=== PATIENT | male | born 1955 | race Caucasian/White ===

== ENCOUNTER 2020-01-26 16:08 | Inpatient (IN) ==
[2020-01-26] MEDS ORDERED: DilTIAZem 50 MG in 0.9 % Sodium Chloride 40 ML IVC SCH (17:00)
[2020-01-26] MEDS ORDERED: Naloxone 0.4 MG/ML INJ IVP PRN (17:59)
[2020-01-26] MEDS ORDERED: *HR* Heparin 5,000 UNIT/ML VIAL IVP ONE (18:46)
[2020-01-26] MEDS ORDERED: *HR* Heparin 5,000 UNIT/ML VIAL IVP PRN ×2 (18:46)
[2020-01-26 18:47] LABS: Basophils % 0.3 %; Eosinophils # 0.1 K/mcL (0.0-0.6); Eosinophils % 1.2 %; Hematocrit 38.8 % (37.5-50.1); Hemoglobin 11.5 g/dL (12.9-16.9); Immature Granulocytes % 0.4 % (0-4); Lymphocytes # 1.6 K/mcL (0.6-4.6); Lymphocytes % 21.7 %; Mean Corpuscular HGB Conc 29.6 g/dL (31.6-35.5); Mean Corpuscular Hemoglobin 24.3 pg (28.0-33.3); Mean Platelet Volume 9.3 fL (9.4-12.4); Monocytes # 0.5 K/mcL (0.0-1.3); Monocytes % 7.3 %; Neutrophils # 5.1 K/mcL (1.6-8.9); Platelet Count 227 K/mcL (140-400); Red Blood Count 4.73 M/mcL (4.19-5.50); Red Cell Distribution Width 14.6 % (11.5-14.5); Segmented Neutrophils % 69.1 %; White Blood Count 7.4 K/mcL (4.3-11.1)
[2020-01-26] MEDS ORDERED: *HR* Dextrose 50 % in Water (Syg) 50 ML SYRINGE IVP PRN (18:47)
[2020-01-26] MEDS ORDERED: Dextrose Gel 15 GM/37.5 ML TUBE PO PRN ×2 (18:47)
[2020-01-26] MEDS ORDERED: D5% in Water 1,000 ML IVC PRN (18:47)
[2020-01-26 19:05] LABS: BUN/Creatinine Ratio 15 (6-26); Blood Urea Nitrogen 16 mg/dL (8-23); Calcium 8.6 mg/dL (8.6-10.3); Carbon Dioxide 31 mEq/L (23-29); Chloride 104 mEq/L (98-107); Glucose 96 mg/dL (70-105); Osmolality,Calculated 291 (280-300); Sodium 140 mEq/L (136-145); eGFR For African Americans > 60 (> 60); eGFR For Non-African Americans > 60 (> 60)
[2020-01-26 19:16] LABS: Heparin anti-factor XA UFH < 0.04 IU/mL (0.30-0.70); Prothrombin Time 11.9 Seconds (9.4-12.1)
[2020-01-26] MEDS: DilTIAZem 50 MG in 0.9 % Sodium Chloride 40 ML IVC SCH (22:13)
[2020-01-26] MEDS: Heparin 25,000 UNIT/250 ML D5W 25,000 UNIT/250 ML IV.SOLN IVC SCH (22:48)
[2020-01-27 01:13] LABS: Basophils % 0.4 %; Eosinophils # 0.2 K/mcL (0.0-0.6); Eosinophils % 1.6 %; Hematocrit 40.3 % (37.5-50.1); Hemoglobin 12.2 g/dL (12.9-16.9); Immature Granulocytes % 0.4 % (0-4); Lymphocytes # 1.9 K/mcL (0.6-4.6); Lymphocytes % 19.2 %; Mean Corpuscular HGB Conc 30.3 g/dL (31.6-35.5); Mean Corpuscular Hemoglobin 24.6 pg (28.0-33.3); Mean Corpuscular Volume 81.3 fL (83.0-100.0); Mean Platelet Volume 9.5 fL (9.4-12.4); Monocytes # 0.8 K/mcL (0.0-1.3); Monocytes % 7.9 %; Neutrophils # 7.1 K/mcL (1.6-8.9); Platelet Count 256 K/mcL (140-400); Red Blood Count 4.96 M/mcL (4.19-5.50); Red Cell Distribution Width 14.8 % (11.5-14.5); Segmented Neutrophils % 70.5 %
[2020-01-27] MEDS ORDERED: Morphine Sulfate Immed Rel 15 MG TABLET PO ONE ×2 (01:19→05:30)
[2020-01-27 01:30] LABS: INR 1.2; Prothrombin Time 13.4 Seconds (9.4-12.1)
[2020-01-27 01:31] LABS: BUN/Creatinine Ratio 16 (6-26); Blood Urea Nitrogen 18 mg/dL (8-23); Calcium 8.9 mg/dL (8.6-10.3); Carbon Dioxide 29 mEq/L (23-29); Chloride 105 mEq/L (98-107); Chol/HDL Ratio 2.8 (0-4.9); Cholesterol 129 mg/dL (< 200); Glucose 120 mg/dL (70-105); HDL Cholesterol 46 mg/dL (40-59); LDL Cholesterol,Calculated 70 mg/dL (0-99); Magnesium 2.2 mg/dL (1.6-2.6); Osmolality,Calculated 293 (280-300); Potassium 4.2 mEq/L (3.5-5.1); Sodium 140 mEq/L (136-145); Triglycerides 63 mg/dL (< 150); eGFR For African Americans > 60 (> 60); eGFR For Non-African Americans > 60 (> 60)
[2020-01-27 01:33] LABS: Activated Partial Thrombo Time 168.4 Seconds (26.0-36.0)
[2020-01-27] MEDS: DilTIAZem 50 MG in 0.9 % Sodium Chloride 40 ML IVC SCH ×5 (02:25→20:06)
[2020-01-27 02:38] LABS: INR 1.2; Prothrombin Time 13.3 Seconds (9.4-12.1)
[2020-01-27] MEDS ORDERED: *HR* HYDROmorphone 2 MG TABLET PO ONE (02:58)
[2020-01-27] MEDS ORDERED: *HR* LORazepam 2 MG/ML VIAL IVP PRN ×3 (04:43)
[2020-01-27] MEDS: Heparin 25,000 UNIT/250 ML D5W 25,000 UNIT/250 ML IV.SOLN IVC SCH ×2 (07:32→18:28)
[2020-01-27] MEDS: Insulin LISPRO 300 UNITS/3 ML VIAL SQ SCH ×3 (08:12→18:16)
[2020-01-27] MEDS ORDERED: Perflutren Lipid Microsphere 1.3 ML in 0.9 % Sodium Chloride 8.7 ML IVP ONE (09:32)
[2020-01-27] MEDS: Bumetanide 1 MG/4 ML VIAL IVP SCH ×2 (09:47→18:16)
[2020-01-27] MEDS ORDERED: MORPHINE SULFATE 100 MG PO SCH (12:00)
[2020-01-27] MEDS ORDERED: MORPHINE SULFATE 100 MG PO ONE (12:07)
[2020-01-27] MEDS: Morphine Sulfate Immed Rel 15 MG TABLET PO PRN ×2 (15:24→21:18)
[2020-01-27] MEDS: MORPHINE SULFATE 100 MG PO SCH ×2 (18:16→23:55)
[2020-01-27] MEDS: Sennosides/Docusate Sodium TABLET PO SCH (21:20)
[2020-01-28 02:12] LABS: Basophils % 0.4 %; Eosinophils # 0.2 K/mcL (0.0-0.6); Eosinophils % 1.5 %; Hematocrit 41.2 % (37.5-50.1); Hemoglobin 12.3 g/dL (12.9-16.9); Immature Granulocytes % 0.4 % (0-4); Lymphocytes # 1.9 K/mcL (0.6-4.6); Lymphocytes % 19.6 %; Mean Corpuscular HGB Conc 29.9 g/dL (31.6-35.5); Mean Corpuscular Hemoglobin 24.6 pg (28.0-33.3); Mean Corpuscular Volume 82.2 fL (83.0-100.0); Mean Platelet Volume 9.9 fL (9.4-12.4); Monocytes # 0.8 K/mcL (0.0-1.3); Monocytes % 7.9 %; Neutrophils # 6.9 K/mcL (1.6-8.9); Platelet Count 277 K/mcL (140-400); Red Blood Count 5.01 M/mcL (4.19-5.50); Red Cell Distribution Width 14.7 % (11.5-14.5); Segmented Neutrophils % 70.2 %; White Blood Count 9.8 K/mcL (4.3-11.1)
[2020-01-28 02:34] LABS: BUN/Creatinine Ratio 18 (6-26); Blood Urea Nitrogen 21 mg/dL (8-23); Calcium 9.4 mg/dL (8.6-10.3); Carbon Dioxide 31 mEq/L (23-29); Chloride 99 mEq/L (98-107); Glucose 110 mg/dL (70-105); Osmolality,Calculated 288 (280-300); Potassium 4.2 mEq/L (3.5-5.1); Sodium 137 mEq/L (136-145); eGFR For African Americans > 60 (> 60); eGFR For Non-African Americans > 60 (> 60)
[2020-01-28] MEDS: Heparin 25,000 UNIT/250 ML D5W 25,000 UNIT/250 ML IV.SOLN IVC SCH ×3 (03:57→23:35)
[2020-01-28] MEDS: Morphine Sulfate Immed Rel 15 MG TABLET PO PRN ×4 (03:59→20:57)
[2020-01-28] MEDS: MORPHINE SULFATE 100 MG PO SCH ×3 (06:24→18:12)
[2020-01-28] MEDS: Insulin LISPRO 300 UNITS/3 ML VIAL SQ SCH ×3 (08:28→18:12)
[2020-01-28] MEDS: Sennosides/Docusate Sodium TABLET PO SCH ×2 (08:32→21:04)
[2020-01-28] MEDS: Bumetanide 1 MG/4 ML VIAL IVP SCH ×2 (11:54→17:10)
[2020-01-28] MEDS ORDERED: DilTIAZem SR (12hr) 60 MG CAP.ER.12H PO SCH (21:00)
[2020-01-29] MEDS: MORPHINE SULFATE 100 MG PO SCH ×4 (00:06→17:33)
[2020-01-29] MEDS: Morphine Sulfate Immed Rel 15 MG TABLET PO PRN ×4 (03:00→21:04)
[2020-01-29 05:38] LABS: Basophils # 0.1 K/mcL (0.0-0.2); Basophils % 0.5 %; Eosinophils # 0.3 K/mcL (0.0-0.6); Eosinophils % 2.7 %; Hematocrit 40.3 % (37.5-50.1); Hemoglobin 12.3 g/dL (12.9-16.9); Immature Granulocytes % 0.3 % (0-4); Lymphocytes # 2.5 K/mcL (0.6-4.6); Mean Corpuscular HGB Conc 30.5 g/dL (31.6-35.5); Mean Corpuscular Hemoglobin 24.9 pg (28.0-33.3); Mean Corpuscular Volume 81.7 fL (83.0-100.0); Mean Platelet Volume 10.3 fL (9.4-12.4); Monocytes # 0.8 K/mcL (0.0-1.3); Monocytes % 8.1 %; Neutrophils # 5.7 K/mcL (1.6-8.9); Platelet Count 210 K/mcL (140-400); Red Blood Count 4.93 M/mcL (4.19-5.50); Red Cell Distribution Width 14.7 % (11.5-14.5); Segmented Neutrophils % 61.4 %; White Blood Count 9.3 K/mcL (4.3-11.1)
[2020-01-29 05:55] LABS: BUN/Creatinine Ratio 21 (6-26); Blood Urea Nitrogen 26 mg/dL (8-23); Calcium 9.6 mg/dL (8.6-10.3); Carbon Dioxide 30 mEq/L (23-29); Chloride 100 mEq/L (98-107); Glucose 121 mg/dL (70-105); Osmolality,Calculated 288 (280-300); Potassium 4.4 mEq/L (3.5-5.1); Sodium 136 mEq/L (136-145); eGFR For African Americans > 60 (> 60); eGFR For Non-African Americans 57 (> 60)
[2020-01-29] MEDS: Cholecalciferol (D-3) 1,000 UNIT (25MCG) TABLET PO SCH (09:02)
[2020-01-29] MEDS: Folic Acid 1 MG TABLET PO SCH ×2 (09:03→17:33)
[2020-01-29] MEDS: Sennosides/Docusate Sodium TABLET PO SCH ×2 (09:03→21:04)
[2020-01-29] MEDS: DilTIAZem SR (12hr) 60 MG CAP.ER.12H PO SCH ×2 (09:03→21:04)
[2020-01-29] MEDS: Loratadine 10 MG TABLET PO SCH (09:04)
[2020-01-29] MEDS: GuaiFENesin Liq 200 MG/10 ML UDC PO SCH ×3 (09:05→17:33)
[2020-01-29] MEDS: Insulin LISPRO 300 UNITS/3 ML VIAL SQ SCH ×3 (09:06→17:34)
[2020-01-29] MEDS: Fluticasone Propionate Nasal 50 MCG/SPRAY BOTTLE NS SCH ×2 (09:06→21:03)
[2020-01-29] MEDS: Heparin 25,000 UNIT/250 ML D5W 25,000 UNIT/250 ML IV.SOLN IVC SCH ×2 (09:10→18:28)
[2020-01-29] MEDS ORDERED: Bumetanide 1 MG/4 ML VIAL IVP SCH ×2 (11:30→18:22)
[2020-01-29] MEDS ORDERED: Warfarin perPT PO PRN (18:00)
[2020-01-29] MEDS ORDERED: *HR* Warfarin 5 MG TABLET PO ONE (18:30)
[2020-01-30] MEDS: MORPHINE SULFATE 100 MG PO SCH ×4 (00:03→17:56)
[2020-01-30] MEDS: Morphine Sulfate Immed Rel 15 MG TABLET PO PRN ×4 (03:28→21:05)
[2020-01-30 04:41] LABS: Basophils % 0.4 %; Eosinophils # 0.2 K/mcL (0.0-0.6); Eosinophils % 2.4 %; Hematocrit 40.6 % (37.5-50.1); Hemoglobin 12.3 g/dL (12.9-16.9); Immature Granulocytes % 0.5 % (0-4); Lymphocytes # 1.8 K/mcL (0.6-4.6); Lymphocytes % 21.4 %; Mean Corpuscular HGB Conc 30.3 g/dL (31.6-35.5); Mean Corpuscular Hemoglobin 24.8 pg (28.0-33.3); Mean Platelet Volume 10.1 fL (9.4-12.4); Monocytes # 0.7 K/mcL (0.0-1.3); Monocytes % 8.2 %; Neutrophils # 5.6 K/mcL (1.6-8.9); Platelet Count 248 K/mcL (140-400); Red Blood Count 4.95 M/mcL (4.19-5.50); Red Cell Distribution Width 14.6 % (11.5-14.5); Segmented Neutrophils % 67.1 %; White Blood Count 8.3 K/mcL (4.3-11.1)
[2020-01-30 04:54] LABS: INR 1.1; Prothrombin Time 12.1 Seconds (9.4-12.1)
[2020-01-30 05:05] LABS: BUN/Creatinine Ratio 21 (6-26); Blood Urea Nitrogen 28 mg/dL (8-23); Calcium 9.9 mg/dL (8.6-10.3); Carbon Dioxide 31 mEq/L (23-29); Chloride 98 mEq/L (98-107); Glucose 103 mg/dL (70-105); Osmolality,Calculated 288 (280-300); Sodium 136 mEq/L (136-145); eGFR For African Americans > 60 (> 60); eGFR For Non-African Americans 53 (> 60)
[2020-01-30] MEDS: Heparin 25,000 UNIT/250 ML D5W 25,000 UNIT/250 ML IV.SOLN IVC SCH ×2 (06:37→17:54)
[2020-01-30] MEDS: Fluticasone Propionate Nasal 50 MCG/SPRAY BOTTLE NS SCH ×2 (10:17→21:04)
[2020-01-30] MEDS: Insulin LISPRO 300 UNITS/3 ML VIAL SQ SCH ×3 (10:17→17:24)
[2020-01-30] MEDS: DilTIAZem SR (12hr) 60 MG CAP.ER.12H PO SCH (10:22)
[2020-01-30] MEDS: Folic Acid 1 MG TABLET PO SCH ×2 (10:23→15:05)
[2020-01-30] MEDS: Cholecalciferol (D-3) 1,000 UNIT (25MCG) TABLET PO SCH ×2 (10:23→10:24)
[2020-01-30] MEDS: Loratadine 10 MG TABLET PO SCH (10:23)
[2020-01-30] MEDS: Sennosides/Docusate Sodium TABLET PO SCH ×2 (10:25→21:03)
[2020-01-30] MEDS ORDERED: *HR* Warfarin 5 MG TABLET PO ONE (18:00)
[2020-01-30] MEDS ORDERED: DilTIAZem CD (24hr) 180 MG CAP.ER.24H PO SCH (20:00)
[2020-01-30] MEDS: DilTIAZem CD (24hr) 240 MG CAP.ER.24H PO SCH (21:03)
[2020-01-31] MEDS: MORPHINE SULFATE 100 MG PO SCH ×4 (00:11→17:59)
[2020-01-31] MEDS: Morphine Sulfate Immed Rel 15 MG TABLET PO PRN ×4 (03:25→21:27)
[2020-01-31] MEDS: Heparin 25,000 UNIT/250 ML D5W 25,000 UNIT/250 ML IV.SOLN IVC SCH ×2 (06:12→17:58)
[2020-01-31 06:36] LABS: Basophils % 0.4 %; Eosinophils # 0.1 K/mcL (0.0-0.6); Eosinophils % 1.9 %; Hematocrit 37.3 % (37.5-50.1); Hemoglobin 11.4 g/dL (12.9-16.9); Immature Granulocytes % 0.3 % (0-4); Lymphocytes # 1.9 K/mcL (0.6-4.6); Lymphocytes % 26.3 %; Mean Corpuscular HGB Conc 30.6 g/dL (31.6-35.5); Mean Corpuscular Hemoglobin 25.2 pg (28.0-33.3); Mean Corpuscular Volume 82.3 fL (83.0-100.0); Mean Platelet Volume 10.1 fL (9.4-12.4); Monocytes # 0.7 K/mcL (0.0-1.3); Monocytes % 9.1 %; Neutrophils # 4.6 K/mcL (1.6-8.9); Platelet Count 239 K/mcL (140-400); Red Blood Count 4.53 M/mcL (4.19-5.50); Red Cell Distribution Width 14.6 % (11.5-14.5); White Blood Count 7.4 K/mcL (4.3-11.1)
[2020-01-31 06:46] LABS: INR 1.1; Prothrombin Time 12.3 Seconds (9.4-12.1)
[2020-01-31 07:00] LABS: BUN/Creatinine Ratio 22 (6-26); Blood Urea Nitrogen 29 mg/dL (8-23); Calcium 9.4 mg/dL (8.6-10.3); Carbon Dioxide 30 mEq/L (23-29); Chloride 99 mEq/L (98-107); Glucose 103 mg/dL (70-105); Osmolality,Calculated 288 (280-300); Potassium 4.5 mEq/L (3.5-5.1); Sodium 136 mEq/L (136-145); eGFR For African Americans > 60 (> 60); eGFR For Non-African Americans 54 (> 60)
[2020-01-31] MEDS: Folic Acid 1 MG TABLET PO SCH ×2 (09:25→17:59)
[2020-01-31] MEDS: Loratadine 10 MG TABLET PO SCH (09:26)
[2020-01-31] MEDS: Cholecalciferol (D-3) 1,000 UNIT (25MCG) TABLET PO SCH (09:26)
[2020-01-31] MEDS: Sennosides/Docusate Sodium TABLET PO SCH ×2 (09:26→21:28)
[2020-01-31] MEDS: Fluticasone Propionate Nasal 50 MCG/SPRAY BOTTLE NS SCH ×2 (09:27→21:29)
[2020-01-31] MEDS: Insulin LISPRO 300 UNITS/3 ML VIAL SQ SCH ×3 (09:27→17:10)
[2020-01-31] MEDS: Bumetanide 1 MG/4 ML VIAL IVP SCH ×2 (09:27→17:59)
[2020-01-31] MEDS ORDERED: *HR* Warfarin 7.5 MG TABLET PO ONE (18:00)
[2020-01-31 19:55] VITALS: BP 113/93
[2020-01-31] MEDS: DilTIAZem CD (24hr) 240 MG CAP.ER.24H PO SCH (21:27)
[2020-02-01] MEDS: MORPHINE SULFATE 100 MG PO SCH ×3 (00:13→11:56)
[2020-02-01 01:08] LABS: Basophils % 0.5 %; Eosinophils # 0.2 K/mcL (0.0-0.6); Eosinophils % 2.2 %; Hematocrit 43.7 % (37.5-50.1); Immature Granulocytes % 0.5 % (0-4); Lymphocytes # 1.9 K/mcL (0.6-4.6); Lymphocytes % 21.5 %; Mean Corpuscular Hemoglobin 24.7 pg (28.0-33.3); Mean Corpuscular Volume 82.5 fL (83.0-100.0); Mean Platelet Volume 9.8 fL (9.4-12.4); Monocytes # 0.7 K/mcL (0.0-1.3); Monocytes % 8.2 %; Neutrophils # 5.8 K/mcL (1.6-8.9); Platelet Count 227 K/mcL (140-400); Red Cell Distribution Width 14.7 % (11.5-14.5); Segmented Neutrophils % 67.1 %; White Blood Count 8.7 K/mcL (4.3-11.1)
[2020-02-01 01:10] LABS: Hemoglobin 13.1 g/dL (12.9-16.9)
[2020-02-01 01:12] LABS: INR 1.1; Prothrombin Time 12.7 Seconds (9.4-12.1)
[2020-02-01 01:27] LABS: BUN/Creatinine Ratio 24 (6-26); Blood Urea Nitrogen 32 mg/dL (8-23); Calcium 9.3 mg/dL (8.6-10.3); Carbon Dioxide 28 mEq/L (23-29); Chloride 99 mEq/L (98-107); Glucose 107 mg/dL (70-105); Osmolality,Calculated 289 (280-300); Potassium 4.3 mEq/L (3.5-5.1); Sodium 136 mEq/L (136-145); eGFR For African Americans > 60 (> 60); eGFR For Non-African Americans 53 (> 60)
[2020-02-01] MEDS: Morphine Sulfate Immed Rel 15 MG TABLET PO PRN ×2 (03:42→09:00)
[2020-02-01] MEDS: Bumetanide 1 MG/4 ML VIAL IVP SCH (08:19)
[2020-02-01] MEDS: Heparin 25,000 UNIT/250 ML D5W 25,000 UNIT/250 ML IV.SOLN IVC SCH (08:19)
[2020-02-01] MEDS: Cholecalciferol (D-3) 1,000 UNIT (25MCG) TABLET PO SCH (08:19)
[2020-02-01] MEDS: Loratadine 10 MG TABLET PO SCH (08:20)
[2020-02-01] MEDS: Sennosides/Docusate Sodium TABLET PO SCH (08:20)
[2020-02-01] MEDS: Folic Acid 1 MG TABLET PO SCH (08:20)
[2020-02-01] MEDS: Fluticasone Propionate Nasal 50 MCG/SPRAY BOTTLE NS SCH (08:29)
[2020-02-01] MEDS: Insulin LISPRO 300 UNITS/3 ML VIAL SQ SCH ×2 (08:30→11:55)
[2020-02-01] MEDS ORDERED: *HR* Warfarin 10 MG TABLET PO ONE (18:00)
== END 2020-02-01 15:56 | disposition home or self-care (01) | DRG 308 ==
LOC: EMEROOARM 16:08 → 2NENU 16:08 → SUATTDRO 21:03 → 2NENU 22:51
PROVIDERS: ADMIT Student in an Organized Health Care Education/Training Program; ATTEND Student in an Organized Health Care Education/Training Program